=== PATIENT | male | born 1960 | race Caucasian/White ===

== ENCOUNTER 2022-10-21 09:59 | Emergency (ER) | payer OTHER ==
[~2022-10-21] VITALS: Ht 177.8 cm; Wt 72.6 kg
[2022-10-21] MEDS ORDERED: ROPI1 PO (10:09)
[2022-10-21] MEDS ORDERED: DIAZ5 PO (10:09)
== END 2022-10-21 10:11 | disposition home or self-care (01) ==
LOC: ER 09:59
DX: Z76.0 Encounter for issue of repeat prescription (principal); G25.81 Restless legs syndrome; F17.210 Nicotine dependence, cigarettes, uncomplicated; Z88.5 Allergy status to narcotic agent; Z88.6 Allergy status to analgesic agent; Z79.899 Other long term (current) drug therapy
CPT/HCPCS: 99281